=== PATIENT | male | born 1955 | race American Indian/Alaskan Native ===

== ENCOUNTER 2017-11-01 15:21 | Emergency (ER) | payer OTHER ==
[2017-11-01] MEDS ORDERED: NORCO PO ONE (20:23)
[2017-11-01] MEDS ORDERED: FLEXERIL PO ONE (20:23)
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
[2017-11-01 22:24] VITALS: BP 155/85
== END 2017-11-01 22:33 | disposition home or self-care (01) ==
LOC: ED 15:21
DX: M79.1 Myalgia (principal); E11.9 Type 2 diabetes mellitus without complications; Z90.49 Acquired absence of other specified parts of digestive tract; V89.2XXA Person injured in unspecified motor-vehicle accident, traffic, initial encounter; Y93.89 Activity, other specified; Y92.89 Other specified places as the place of occurrence of the external cause; Y99.8 Other external cause status
CPT/HCPCS: 99282